=== PATIENT | female | born 1950 | race Caucasian/White ===

== ENCOUNTER 2018-02-03 15:43 | Inpatient (IN) | payer BC ==
[2018-02-03] MEDS ORDERED: KETOROLAC 30 MG INJ IV (18:30)
[2018-02-03] MEDS ORDERED: BISACODYL 10 MG SUPP PR (19:00)
[2018-02-03] MEDS ORDERED: NACL 0.9% 3 ML SYG IV ×2 (19:00)
[2018-02-03] MEDS ORDERED: ACETAMINOPHEN 325 MG TAB PO (19:00)
[2018-02-03] MEDS ORDERED: HYDROCODONE/APAP (5/325) TAB PO ×3 (19:00)
[2018-02-03] MEDS ORDERED: METHOCARBAMOL 500 MG TAB PO (19:00)
[2018-02-03] MEDS ORDERED: DOCUSATE SODIUM 100 MG CAP PO (19:00)
[2018-02-03] MEDS ORDERED: ACETAMINOPHEN 650 MG SUPP PR (19:00)
[2018-02-03] MEDS: morphine 2 MG INJ IV (19:20)
[2018-02-03] MEDS: NAPROXEN 500 MG TAB PO (21:35)
[2018-02-03] MEDS: FAMOTIDINE 20 MG INJ IV (21:35)
[2018-02-03] MEDS: BISACODYL (EC) 5 MG TAB PO (21:36)
[2018-02-03] MEDS: AMITRIPTYLINE 25 MG TAB PO (21:36)
[2018-02-04] MEDS: FAMOTIDINE 20 MG INJ IV ×2 (08:37→21:21)
[2018-02-04] MEDS: predniSONE 20 MG TAB PO (08:37)
[2018-02-04] MEDS: NAPROXEN 500 MG TAB PO ×2 (08:37→21:21)
[2018-02-04] MEDS: FUROSEMIDE 20 MG TAB PO (08:37)
[2018-02-04] MEDS: DICLOFENAC SODIUM 1% GEL 100 GM TUBE TP ×2 (12:40→21:22)
[2018-02-04] MEDS: BISACODYL (EC) 5 MG TAB PO (12:43)
[2018-02-04] MEDS: MAGNESIUM HYDROXIDE 30ML CUP PO (12:43)
[2018-02-04] MEDS: BISACODYL 30 ML ENEMA PR (15:21)
[2018-02-04] MEDS: CARISOPRODOL 350 MG TAB PO ×2 (15:23→21:21)
[2018-02-04] MEDS: LUBIPROSTONE 8 MCG CAPSULE PO ×2 (15:23→23:00)
[2018-02-04] MEDS: ONDANSETRON 4 MG INJ IV (16:33)
[2018-02-04] MEDS: AMITRIPTYLINE 25 MG TAB PO (21:21)
[2018-02-04] MEDS: DOCUSATE SODIUM 100 MG CAP PO (21:21)
[2018-02-05 09:22] LABS: ADD MAN DIFF? NO
[2018-02-05 09:26] LABS: WHITE BLOOD COUNT 11.3 10^3/ul (4.8-10.8)
[2018-02-05 09:26] LABS: BASOPHILS % 0.1 % (0.0-2.0); HEMATOCRIT 40.3 % (37.0-47.0); HEMOGLOBIN 13.2 g/dl (12.0-16.0); LYMPHOCYTES # 1.4 10^3/ul (0.8-2.9); LYMPHOCYTES % 12.8 % (15.0-51.0); MEAN CORPUSCULAR HEMOGLOBIN 29.7 pg (29.0-33.0); MEAN CORPUSCULAR HGB CONC 32.8 g/dl (32.0-37.0); MEAN CORPUSCULAR VOLUME 90.8 fl (82.0-101.0); MEAN PLATELET VOLUME 11.3 fl (7.4-10.4); MONOCYTE # 0.7 10^3/ul (0.3-0.9); MONOCYTES % 6.4 % (0.0-11.0); NEUTROPHILS % 79.8 % (39.0-77.0); PLATELET COUNT 225 10^3/UL (140-415); RED BLOOD COUNT 4.44 10^6/ul (4.20-5.40); RED CELL DISTRIBUTION WIDTH 13.4 % (11.5-14.5)
[2018-02-05] MEDS: predniSONE 20 MG TAB PO (09:48)
[2018-02-05] MEDS: FUROSEMIDE 20 MG TAB PO (09:48)
[2018-02-05] MEDS: FAMOTIDINE 20 MG INJ IV (09:48)
[2018-02-05] MEDS: CARISOPRODOL 350 MG TAB PO (09:48)
[2018-02-05] MEDS: BISACODYL (EC) 5 MG TAB PO (09:48)
[2018-02-05] MEDS: DOCUSATE SODIUM 100 MG CAP PO (09:48)
[2018-02-05] MEDS: NAPROXEN 500 MG TAB PO (09:48)
[2018-02-05] MEDS: LUBIPROSTONE 8 MCG CAPSULE PO (09:51)
[2018-02-05] MEDS: NA PHOSPHATE/BIPHOS 133 ML ENEMA PR (09:52)
[2018-02-05 10:02] LABS: ANION GAP 12 (8-16); BLOOD UREA NITROGEN 38 mg/dl (7-20); CALCIUM 8.6 mg/dl (8.4-10.2); CARBON DIOXIDE 33 mmol/L (21-31); CHLORIDE 102 mmol/L (97-110); CREATININE 0.78 mg/dl (0.44-1.00); GLUCOSE 111 mg/dl (70-220); POTASSIUM 3.9 mmol/L (3.5-5.1); SODIUM 143 mmol/L (135-144)
[2018-02-05] MEDS: ERGOCALCIFEROL 50,000 UNIT CAP PO (14:15)
[2018-02-05] MEDS: MAGNESIUM CITRATE 300 ML BTL PO (14:15)
[2018-02-06] MEDS ORDERED: FAMOTIDINE 20 MG TAB PO (09:00)
== END 2018-02-05 19:30 | disposition home or self-care (01) | DRG 552 ==
LOC: 5EC 15:43
PROVIDERS: Internal Medicine Nephrology
DX: M54.41 Lumbago with sciatica, right side (principal); R65.10 Systemic inflammatory response syndrome (SIRS) of non-infectious origin without acute organ dysfunction; I10 Essential (primary) hypertension; R73.03 Prediabetes; K59.00 Constipation, unspecified; E55.9 Vitamin D deficiency, unspecified; E66.9 Obesity, unspecified; Z68.38 Body mass index [BMI] 38.0-38.9, adult; Z87.891 Personal history of nicotine dependence
CPT/HCPCS: 80048; 82652; 83036; 85025; 97116; 97161; 97530

== ENCOUNTER 2018-04-01 16:48 | Emergency (ER) | payer BC ==
[2018-04-01 17:43] LABS: ADD MAN DIFF? NO
[2018-04-01 17:51] LABS: WHITE BLOOD COUNT 5.5 10^3/ul (4.8-10.8)
[2018-04-01 17:51] LABS: BASOPHILS % 0.5 % (0.0-2.0); EOSINOPHILS # 0.1 10^3/ul (0.0-0.5); EOSINOPHILS % 2.4 % (0.0-7.0); HEMATOCRIT 38.9 % (37.0-47.0); HEMOGLOBIN 12.6 g/dl (12.0-16.0); LYMPHOCYTES # 1.7 10^3/ul (0.8-2.9); LYMPHOCYTES % 31.1 % (15.0-51.0); MEAN CORPUSCULAR HEMOGLOBIN 29.7 pg (29.0-33.0); MEAN CORPUSCULAR HGB CONC 32.4 g/dl (32.0-37.0); MEAN CORPUSCULAR VOLUME 91.7 fl (82.0-101.0); MEAN PLATELET VOLUME 11.3 fl (7.4-10.4); MONOCYTE # 0.4 10^3/ul (0.3-0.9); MONOCYTES % 7.7 % (0.0-11.0); NEUTROPHIL # 3.2 10^3/ul (1.6-7.5); NEUTROPHILS % 58.1 % (39.0-77.0); PLATELET COUNT 240 10^3/UL (140-415); RED BLOOD COUNT 4.24 10^6/ul (4.20-5.40); RED CELL DISTRIBUTION WIDTH 14.2 % (11.5-14.5)
[2018-04-01] MEDS ORDERED: ACETAMINOPHEN 325 MG TAB PO (18:00)
[2018-04-01] MEDS ORDERED: ONDANSETRON 4 MG INJ IV (18:00)
[2018-04-01 18:07] LABS: INR 0.97
[2018-04-01 18:09] LABS: ANION GAP 7 (5-13); BLOOD UREA NITROGEN 24 mg/dl (7-20); CALCIUM 9.2 mg/dl (8.4-10.2); CARBON DIOXIDE 26 mmol/L (21-31); CHLORIDE 107 mmol/L (97-110); CREATININE 0.64 mg/dl (0.44-1.00); Estimated GFR > 60 mL/min (>60); GLUCOSE 100 mg/dl (70-220); POTASSIUM 3.7 mmol/L (3.5-5.1); SODIUM 140 mmol/L (135-144)
[2018-04-01 18:21] LABS: TROPONIN-I < 0.012 ng/ml (0.000-0.120)
== END 2018-04-01 20:35 | disposition home or self-care (01) ==
LOC: E/R 16:48
DX: M54.5 Low back pain (principal); I10 Essential (primary) hypertension; E66.9 Obesity, unspecified; R10.9 Unspecified abdominal pain
CPT/HCPCS: 36415; 71045; 80048; 84484; 85025; 85610; 85730; 86850; 86900; 86901; 99285-25

== ENCOUNTER 2018-04-04 13:18 | Inpatient (IN) | payer BC ==
[2018-04-04] MEDS ORDERED: ONDANSETRON 4 MG INJ IV ×2 (13:30→16:00)
[2018-04-04] MEDS ORDERED: ACETAMINOPHEN 325 MG TAB PO ×2 (13:30→16:00)
[2018-04-04 13:47] LABS: ADD MAN DIFF? NO
[2018-04-04 13:52] LABS: BASOPHILS % 0.4 % (0.0-2.0); EOSINOPHILS # 0.2 10^3/ul (0.0-0.5); EOSINOPHILS % 4.3 % (0.0-7.0); HEMATOCRIT 37.8 % (37.0-47.0); HEMOGLOBIN 12.4 g/dl (12.0-16.0); LYMPHOCYTES # 1.4 10^3/ul (0.8-2.9); LYMPHOCYTES % 26.9 % (15.0-51.0); MEAN CORPUSCULAR HEMOGLOBIN 30.5 pg (29.0-33.0); MEAN CORPUSCULAR HGB CONC 32.8 g/dl (32.0-37.0); MEAN CORPUSCULAR VOLUME 93.1 fl (82.0-101.0); MEAN PLATELET VOLUME 11.4 fl (7.4-10.4); MONOCYTE # 0.3 10^3/ul (0.3-0.9); MONOCYTES % 6.5 % (0.0-11.0); NEUTROPHIL # 3.1 10^3/ul (1.6-7.5); NEUTROPHILS % 61.7 % (39.0-77.0); PLATELET COUNT 238 10^3/UL (140-415); RED BLOOD COUNT 4.06 10^6/ul (4.20-5.40); RED CELL DISTRIBUTION WIDTH 14.5 % (11.5-14.5)
[2018-04-04 13:52] LABS: WHITE BLOOD COUNT 5.1 10^3/ul (4.8-10.8)
[2018-04-04 14:09] LABS: ANION GAP 6 (5-13); BLOOD UREA NITROGEN 19 mg/dl (7-20); CALCIUM 8.7 mg/dl (8.4-10.2); CARBON DIOXIDE 27 mmol/L (21-31); CHLORIDE 108 mmol/L (97-110); CREATININE 0.61 mg/dl (0.44-1.00); Estimated GFR > 60 mL/min (>60); GLUCOSE 125 mg/dl (70-220); POTASSIUM 3.9 mmol/L (3.5-5.1); SODIUM 141 mmol/L (135-144)
[2018-04-04 14:12] LABS: INR 0.97; PARTIAL THROMBOPLASTIN TIME 30.7 Sec (23.0-35.0)
[2018-04-04 14:21] LABS: TROPONIN-I < 0.012 ng/ml (0.000-0.120)
[2018-04-04] MEDS ORDERED: CARISOPRODOL 350 MG TAB PO (16:00)
[2018-04-04] MEDS ORDERED: HYDROCODONE/APAP (5/325) TAB PO (16:00)
[2018-04-04] MEDS ORDERED: METHOCARBAMOL 500 MG TAB PO (16:00)
[2018-04-04] MEDS ORDERED: NACL 0.9% 3 ML SYG IV (16:00)
[2018-04-04 16:08] LABS: CREATINE KINASE 23 IU/L (23-200)
[2018-04-04 16:21] LABS: CK-MB < 0.22 ng/ml (0.0-2.4); TROPONIN-I < 0.012 ng/ml (0.000-0.120)
[2018-04-04] MEDS: HYDROmorphONE 2 MG TAB PO (20:11)
[2018-04-04] MEDS: AMITRIPTYLINE 25 MG TAB PO (20:14)
[2018-04-04] MEDS: NAPROXEN 500 MG TAB PO (20:14)
[2018-04-04] MEDS: LUBIPROSTONE 8 MCG CAPSULE PO (20:14)
[2018-04-04] MEDS: GABAPENTIN 100 MG CAP PO (20:14)
[2018-04-04 22:44] LABS: CREATINE KINASE 25 IU/L (23-200)
[2018-04-04 22:57] LABS: CK INDEX 1.5; CK-MB 0.37 ng/ml (0.0-2.4); TROPONIN-I < 0.012 ng/ml (0.000-0.120)
[2018-04-04] MEDS: LORAZEPAM 2 MG INJ IV (23:54)
[2018-04-04] MEDS: ENOXAPARIN 100 MG/ML SYG SC (23:54)
[2018-04-04] MEDS: HYDROCODONE/APAP (5/325) TAB PO (23:59)
[2018-04-05] MEDS ORDERED: HYDROmorphONE 1 MG/ML SYG IV (00:30)
[2018-04-05] MEDS: PANTOPRAZOLE (EC) 40 MG TAB PO (05:48)
[2018-04-05] MEDS: LUBIPROSTONE 8 MCG CAPSULE PO ×2 (09:15→20:28)
[2018-04-05] MEDS: NAPROXEN 500 MG TAB PO ×2 (09:15→20:28)
[2018-04-05] MEDS: MAGNESIUM HYDROXIDE 30ML CUP PO (09:15)
[2018-04-05] MEDS: BISACODYL 10 MG SUPP PR (09:16)
[2018-04-05] MEDS: GABAPENTIN 100 MG CAP PO ×2 (09:16→20:28)
[2018-04-05] MEDS: ENOXAPARIN 100 MG/ML SYG SC ×2 (09:19→22:15)
[2018-04-05] MEDS: BISACODYL (EC) 5 MG TAB PO (17:28)
[2018-04-05] MEDS: AMITRIPTYLINE 25 MG TAB PO (20:28)
[2018-04-05] MEDS: HYDROCODONE/APAP (5/325) TAB PO (20:30)
[2018-04-06] MEDS: PANTOPRAZOLE (EC) 40 MG TAB PO (06:28)
[2018-04-06] MEDS: LUBIPROSTONE 8 MCG CAPSULE PO ×2 (10:00→22:11)
[2018-04-06] MEDS: GABAPENTIN 100 MG CAP PO ×2 (10:00→22:14)
[2018-04-06] MEDS: MAGNESIUM HYDROXIDE 30ML CUP PO (10:00)
[2018-04-06] MEDS: NAPROXEN 500 MG TAB PO ×2 (10:00→22:10)
[2018-04-06] MEDS: ENOXAPARIN 100 MG/ML SYG SC ×2 (10:03→22:13)
[2018-04-06] MEDS: LORAZEPAM 2 MG INJ IV ×2 (10:04→22:16)
[2018-04-06] MEDS: BISACODYL 10 MG SUPP PR (10:06)
[2018-04-06] MEDS: NA PHOSPHATE/BIPHOS 133 ML ENEMA PR (10:44)
[2018-04-06] MEDS ORDERED: LACTULOSE ENEMA 1,000 ML BTL PR (14:30)
[2018-04-06] MEDS: LACTULOSE 30ML CUP PO (14:56)
[2018-04-06] MEDS: HYDROCODONE/APAP (5/325) TAB PO ×2 (15:58→22:10)
[2018-04-06] MEDS: AMITRIPTYLINE 25 MG TAB PO (22:10)
[2018-04-06] MEDS: DOCUSATE SODIUM 100 MG CAP PO (22:13)
[2018-04-07] MEDS: PANTOPRAZOLE (EC) 40 MG TAB PO (06:09)
[2018-04-07] MEDS: MAGNESIUM HYDROXIDE 30ML CUP PO (09:49)
[2018-04-07] MEDS: LUBIPROSTONE 8 MCG CAPSULE PO ×2 (09:49→20:10)
[2018-04-07] MEDS: NAPROXEN 500 MG TAB PO ×2 (09:49→20:10)
[2018-04-07] MEDS: BISACODYL 10 MG SUPP PR (09:49)
[2018-04-07] MEDS: GABAPENTIN 100 MG CAP PO ×2 (09:49→20:11)
[2018-04-07] MEDS: ENOXAPARIN 100 MG/ML SYG SC (09:51)
[2018-04-07] MEDS: LORAZEPAM 2 MG INJ IV ×2 (10:01→21:28)
[2018-04-07 12:00] LABS: ANION GAP 5 (5-13); BLOOD UREA NITROGEN 15 mg/dl (7-20); CALCIUM 8.8 mg/dl (8.4-10.2); CARBON DIOXIDE 29 mmol/L (21-31); CHLORIDE 105 mmol/L (97-110); CREATININE 0.63 mg/dl (0.44-1.00); Estimated GFR > 60 mL/min (>60); GLUCOSE 95 mg/dl (70-220); SODIUM 139 mmol/L (135-144)
[2018-04-07] MEDS: AMITRIPTYLINE 25 MG TAB PO (20:11)
[2018-04-07] MEDS: HYDROCODONE/APAP (5/325) TAB PO (20:12)
[2018-04-07] MEDS: APIXABAN 5 MG TABLET PO (21:02)
[2018-04-08] MEDS: PANTOPRAZOLE (EC) 40 MG TAB PO (06:18)
[2018-04-08] MEDS: LORAZEPAM 2 MG INJ IV (09:55)
[2018-04-08] MEDS: BISACODYL 10 MG SUPP PR (09:56)
[2018-04-08] MEDS: LUBIPROSTONE 8 MCG CAPSULE PO (09:56)
[2018-04-08] MEDS: MAGNESIUM HYDROXIDE 30ML CUP PO (09:56)
[2018-04-08] MEDS: APIXABAN 5 MG TABLET PO (09:57)
[2018-04-08] MEDS: NAPROXEN 500 MG TAB PO (09:57)
[2018-04-08] MEDS: GABAPENTIN 100 MG CAP PO (09:57)
[2018-04-08] MEDS: HYDROCODONE/APAP (5/325) TAB PO (12:54)
[2018-04-09] MEDS ORDERED: ERGOCALCIFEROL 50,000 UNIT CAP PO (09:00)
== END 2018-04-08 16:30 | DRG 552 ==
LOC: E/R 13:18 → PP2 13:24
DX: M54.16 Radiculopathy, lumbar region (principal); M50.00 Cervical disc disorder with myelopathy, unspecified cervical region; I82.4Z2 Acute embolism and thrombosis of unspecified deep veins of left distal lower extremity; I10 Essential (primary) hypertension; R73.03 Prediabetes; Z68.35 Body mass index [BMI] 35.0-35.9, adult; E55.9 Vitamin D deficiency, unspecified; K59.00 Constipation, unspecified; F32.9 Major depressive disorder, single episode, unspecified; F41.9 Anxiety disorder, unspecified; G47.33 Obstructive sleep apnea (adult) (pediatric); M48.07 Spinal stenosis, lumbosacral region; M48.062 Spinal stenosis, lumbar region with neurogenic claudication; M19.90 Unspecified osteoarthritis, unspecified site; K21.9 Gastro-esophageal reflux disease without esophagitis; E78.5 Hyperlipidemia, unspecified; E66.01 Morbid (severe) obesity due to excess calories
CPT/HCPCS: 36415; 71045; 80048; 82550; 82553; 84484; 85025; 85610; 85730; 87081; 90686; 93005; 93306; 93970; 99285-25; G0378

== ENCOUNTER 2018-08-05 06:34 | Inpatient (IN) | payer BC ==
[~2018-08-05 06:34] MED LIST: SOD CHLORIDE 0.9% 1,000 ML IV
[2018-08-05] MEDS ORDERED: EPHEDrine SULFATE 50 MG/5 ML SYG (07:00)
[2018-08-05] MEDS: THROMBIN (BOVINE) 5,000 UNIT VIAL TP (08:03)
[2018-08-05] MEDS: GELATIN SIZE 100 SPONGE (08:03)
[2018-08-05] MEDS: LIDOCAINE 1%/EPI (1:100,000) (MDV) 20 ML (08:03)
[2018-08-05] MEDS: VANCOMYCIN 1 GM INJ (08:03)
[2018-08-05] MEDS: POLYMYXIN/BACITRACIN 1L IRRIG (08:03)
[2018-08-05] MEDS: BUPIVACAINE 0.5% (SDV) 30 ML INJ (08:03)
[2018-08-05] MEDS: CEFAZOLIN 2 GM/50 ML (PMX) 50 ML (FOR WT < 120 KG) IVPB (08:10)
[2018-08-05] MEDS ORDERED: PROPOFOL 20 ML (08:15)
[2018-08-05] MEDS ORDERED: ROCURONIUM 50 MG INJ (08:15)
[2018-08-05] MEDS ORDERED: MIDAZOLAM 1 MG/ML 2 ML INJ (08:15)
[2018-08-05] MEDS ORDERED: CEFAZOLIN 1 GM INJ ×2 (08:25→11:21)
[2018-08-05] MEDS ORDERED: DEXAMETHASONE 4 MG/ML 5 ML INJ (08:28)
[2018-08-05] MEDS ORDERED: METOCLOPRAMIDE 10 MG INJ (08:28)
[2018-08-05] MEDS ORDERED: ONDANSETRON 4 MG INJ (08:28)
[2018-08-05] MEDS ORDERED: PHENYLephrine (100 MCG/ML) 5ML SYG ×2 (08:30→10:07)
[2018-08-05] MEDS ORDERED: THROMBIN (BOVINE) 5,000 UNIT VIAL TP ×2 (10:32→11:13)
[2018-08-05] MEDS ORDERED: GELATIN SIZE 100 SPONGE (11:13)
[2018-08-05] MEDS ORDERED: GLYCOPYRROLATE 0.4 MG INJ (12:48)
[2018-08-05] MEDS ORDERED: NEOSTIGMINE 10 MG INJ (12:48)
[2018-08-05] MEDS ORDERED: SOD CHLORIDE 0.45% 1,000 ML IV (13:06)
[2018-08-05] MEDS ORDERED: ONDANSETRON 4 MG INJ IV (13:30)
[2018-08-05] MEDS ORDERED: NACL 0.9% 3 ML SYG IV (13:30)
[2018-08-05] MEDS ORDERED: DIAZEPAM 5 MG TAB PO (13:30)
[2018-08-05] MEDS ORDERED: NALOXONE (0.4 MG/ML) INJ IV (13:30)
[2018-08-05] MEDS ORDERED: OXYCODONE/ACETAMINOPHEN (5/325) TAB PO ×4 (13:30→16:30)
[2018-08-05] MEDS ORDERED: METOCLOPRAMIDE 10 MG INJ IV (13:30)
[2018-08-05] MEDS ORDERED: MEPERIDINE 25 MG INJ IV (13:30)
[2018-08-05] MEDS ORDERED: HYDROmorphONE 1 MG/5 ML IV SYRINGE IV ×3 (13:30)
[2018-08-05] MEDS ORDERED: AL HYDROX/MG HYDROX/SIMETH 30 ML CUP PO (13:30)
[2018-08-05] MEDS ORDERED: LABETALOL HCL 20MG INJ IV (13:30)
[2018-08-05] MEDS ORDERED: FENTAnyl 50 MCG/ML VIAL IV ×3 (13:30)
[2018-08-05] MEDS ORDERED: hydrALAzine 20 MG INJ IV (13:30)
[2018-08-05] MEDS ORDERED: DIPHENHYDRAMINE 50 MG INJ IV (13:30)
[2018-08-05] MEDS ORDERED: EPHEDrine SULFATE 50 MG/5 ML SYG IV (13:30)
[2018-08-05] MEDS ORDERED: ZOLPIDEM 5 MG TAB PO (13:30)
[2018-08-05] MEDS: morphine 1 MG/ML 30 ML (PCA) IV (13:37)
[2018-08-05] MEDS: ACETAMINOPHEN 1000MG/100ML IV 100 ML IVPB ×2 (14:22→22:24)
[2018-08-05] MEDS: SOD CHLORIDE 0.45% 1,000 ML IV (16:57)
[2018-08-05] MEDS: CEFEPIME 2GM/50 ML (PMX) 50 ML IVPB (21:15)
[2018-08-06] MEDS: ACETAMINOPHEN 1000MG/100ML IV 100 ML IVPB ×2 (01:30→04:36)
[2018-08-06] MEDS: SOD CHLORIDE 0.45% 1,000 ML IV (02:24)
[2018-08-06 05:05] LABS: ADD MAN DIFF? NO
[2018-08-06 05:17] LABS: WHITE BLOOD COUNT 11.2 10^3/ul (4.8-10.8)
[2018-08-06 05:17] LABS: BASOPHILS % 0.1 % (0.0-2.0); HEMATOCRIT 28.1 % (37.0-47.0); HEMOGLOBIN 9.2 g/dl (12.0-16.0); LYMPHOCYTES # 0.8 10^3/ul (0.8-2.9); LYMPHOCYTES % 7.1 % (15.0-51.0); MEAN CORPUSCULAR HGB CONC 32.7 g/dl (32.0-37.0); MEAN CORPUSCULAR VOLUME 88.6 fl (82.0-101.0); MEAN PLATELET VOLUME 11.6 fl (7.4-10.4); MONOCYTE # 0.3 10^3/ul (0.3-0.9); MONOCYTES % 2.2 % (0.0-11.0); NEUTROPHIL # 10.1 10^3/ul (1.6-7.5); NEUTROPHILS % 90.2 % (39.0-77.0); PLATELET COUNT 189 10^3/UL (140-415); RED BLOOD COUNT 3.17 10^6/ul (4.20-5.40); RED CELL DISTRIBUTION WIDTH 13.3 % (11.5-14.5)
[2018-08-06 05:36] LABS: TROPONIN-I < 0.012 ng/ml (0.000-0.120)
[2018-08-06 05:37] LABS: ANION GAP 6 (5-13); BLOOD UREA NITROGEN 14 mg/dl (7-20); CALCIUM 8.5 mg/dl (8.4-10.2); CARBON DIOXIDE 27 mmol/L (21-31); CHLORIDE 107 mmol/L (97-110); CREATININE 0.56 mg/dl (0.44-1.00); Estimated GFR > 60 mL/min (>60); GLUCOSE 134 mg/dl (70-220); POTASSIUM 4.1 mmol/L (3.5-5.1); SODIUM 140 mmol/L (135-144)
[2018-08-06] MEDS: LACTATED RINGER'S 1,000 ML IV (06:00)
[2018-08-06] MEDS: PANTOPRAZOLE (EC) 40 MG TAB PO (06:00)
[2018-08-06] MEDS: CEFEPIME 2GM/50 ML (PMX) 50 ML IVPB ×2 (08:45→20:58)
[2018-08-06] MEDS: DOCUSATE SODIUM 100 MG CAP PO ×2 (08:46→20:58)
[2018-08-06] MEDS: HEPARIN 5,000 UNIT/1 ML VIAL SC ×2 (11:30→21:13)
[2018-08-06 14:30] LABS: TROPONIN-I < 0.012 ng/ml (0.000-0.120)
[2018-08-06] MEDS: HYDROCODONE/APAP (5/325) TAB PO (19:42)
[2018-08-06] MEDS: AMITRIPTYLINE 25 MG TAB PO (22:25)
[2018-08-07] MEDS: morphine 2 MG INJ IV (05:07)
[2018-08-07 05:31] LABS: ADD MAN DIFF? NO
[2018-08-07 05:44] LABS: WHITE BLOOD COUNT 8.8 10^3/ul (4.8-10.8)
[2018-08-07 05:44] LABS: ABNORMAL IP MESSAGE 1; BASOPHILS % 0.1 % (0.0-2.0); EOSINOPHILS % 0.1 % (0.0-7.0); HEMATOCRIT 26.9 % (37.0-47.0); HEMOGLOBIN 8.7 g/dl (12.0-16.0); LYMPHOCYTES # 1.3 10^3/ul (0.8-2.9); LYMPHOCYTES % 15.1 % (15.0-51.0); MEAN CORPUSCULAR HEMOGLOBIN 30.1 pg (29.0-33.0); MEAN CORPUSCULAR HGB CONC 32.3 g/dl (32.0-37.0); MEAN CORPUSCULAR VOLUME 93.1 fl (82.0-101.0); MEAN PLATELET VOLUME 12.4 fl (7.4-10.4); MONOCYTE # 0.5 10^3/ul (0.3-0.9); MONOCYTES % 5.4 % (0.0-11.0); NEUTROPHIL # 6.9 10^3/ul (1.6-7.5); NEUTROPHILS % 78.7 % (39.0-77.0); RED BLOOD COUNT 2.89 10^6/ul (4.20-5.40); RED CELL DISTRIBUTION WIDTH 13.8 % (11.5-14.5)
[2018-08-07 06:01] LABS: POSITIVE DIFF @See below
[2018-08-07 06:11] LABS: ANION GAP 5 (5-13); BLOOD UREA NITROGEN 18 mg/dl (7-20); CALCIUM 8.3 mg/dl (8.4-10.2); CARBON DIOXIDE 28 mmol/L (21-31); CHLORIDE 108 mmol/L (97-110); CREATININE 0.56 mg/dl (0.44-1.00); Estimated GFR > 60 mL/min (>60); GLUCOSE 97 mg/dl (70-220); POTASSIUM 3.6 mmol/L (3.5-5.1); SODIUM 141 mmol/L (135-144)
[2018-08-07] MEDS: PANTOPRAZOLE (EC) 40 MG TAB PO (06:21)
[2018-08-07] MEDS: HYDROCODONE/APAP (5/325) TAB PO ×2 (07:21→12:06)
[2018-08-07] MEDS: EPHEDrine 50 MG INJ IV (07:21)
[2018-08-07 08:19] LABS: PLATELET COUNT 173 10^3/UL (140-415)
[2018-08-07] MEDS: DOCUSATE SODIUM 100 MG CAP PO ×2 (08:33→20:21)
[2018-08-07] MEDS: CEFEPIME 2GM/50 ML (PMX) 50 ML IVPB ×2 (08:33→20:22)
[2018-08-07] MEDS: HEPARIN 5,000 UNIT/1 ML VIAL SC ×2 (08:39→20:24)
[2018-08-07] MEDS ORDERED: HYDROCODONE/APAP (5/325) TAB PO (12:00)
[2018-08-07] MEDS ORDERED: BISACODYL 10 MG SUPP PR (12:30)
[2018-08-07] MEDS: BISACODYL 30 ML ENEMA PR (14:50)
[2018-08-07] MEDS: LUBIPROSTONE 8 MCG CAPSULE PO ×2 (14:50→20:22)
[2018-08-07] MEDS: ACETAMINOPHEN 1000MG/100ML IV 100 ML IVPB ×2 (15:59→20:47)
[2018-08-07] MEDS: AMITRIPTYLINE 25 MG TAB PO (20:21)
[2018-08-08 05:15] LABS: ADD MAN DIFF? NO
[2018-08-08 05:19] LABS: BASOPHILS % 0.4 % (0.0-2.0); EOSINOPHILS % 0.4 % (0.0-7.0); HEMATOCRIT 29.2 % (37.0-47.0); HEMOGLOBIN 9.2 g/dl (12.0-16.0); LYMPHOCYTES # 1.4 10^3/ul (0.8-2.9); LYMPHOCYTES % 19.8 % (15.0-51.0); MEAN CORPUSCULAR HEMOGLOBIN 28.9 pg (29.0-33.0); MEAN CORPUSCULAR HGB CONC 31.5 g/dl (32.0-37.0); MEAN CORPUSCULAR VOLUME 91.8 fl (82.0-101.0); MEAN PLATELET VOLUME 11.6 fl (7.4-10.4); MONOCYTE # 0.6 10^3/ul (0.3-0.9); MONOCYTES % 8.4 % (0.0-11.0); NEUTROPHILS % 70.6 % (39.0-77.0); PLATELET COUNT 186 10^3/UL (140-415); RED BLOOD COUNT 3.18 10^6/ul (4.20-5.40); RED CELL DISTRIBUTION WIDTH 13.6 % (11.5-14.5)
[2018-08-08 05:19] LABS: WHITE BLOOD COUNT 7.1 10^3/ul (4.8-10.8)
[2018-08-08] MEDS: ACETAMINOPHEN 1000MG/100ML IV 100 ML IVPB (05:31)
[2018-08-08] MEDS: PANTOPRAZOLE (EC) 40 MG TAB PO (05:34)
[2018-08-08 05:38] LABS: ANION GAP 6 (5-13); BLOOD UREA NITROGEN 10 mg/dl (7-20); CALCIUM 8.4 mg/dl (8.4-10.2); CARBON DIOXIDE 32 mmol/L (21-31); CHLORIDE 103 mmol/L (97-110); CREATININE 0.59 mg/dl (0.44-1.00); Estimated GFR > 60 mL/min (>60); GLUCOSE 95 mg/dl (70-220); POTASSIUM 3.2 mmol/L (3.5-5.1); SODIUM 141 mmol/L (135-144)
[2018-08-08] MEDS: LUBIPROSTONE 8 MCG CAPSULE PO ×2 (09:14→21:00)
[2018-08-08] MEDS: CEFEPIME 2GM/50 ML (PMX) 50 ML IVPB (09:14)
[2018-08-08] MEDS: DOCUSATE SODIUM 100 MG CAP PO ×2 (09:14→21:00)
[2018-08-08] MEDS: HEPARIN 5,000 UNIT/1 ML VIAL SC ×2 (09:15→20:51)
[2018-08-08] MEDS: ONDANSETRON 4 MG INJ IV (09:26)
[2018-08-08] MEDS: POTASSIUM CHLORIDE (SR) 20 MEQ TAB PO ×2 (13:47→13:50)
[2018-08-08] MEDS: AMLODIPINE 5 MG TAB PO (13:48)
[2018-08-08] MEDS: HYDROCODONE/APAP (5/325) TAB PO (17:34)
[2018-08-08] MEDS: AMITRIPTYLINE 25 MG TAB PO (20:49)
[2018-08-08] MEDS: ACETAMINOPHEN 325 MG TAB PO (23:39)
[2018-08-09] MEDS: PANTOPRAZOLE (EC) 40 MG TAB PO (05:25)
[2018-08-09] MEDS: AMLODIPINE 5 MG TAB PO (09:00)
[2018-08-09] MEDS: LUBIPROSTONE 8 MCG CAPSULE PO (09:46)
[2018-08-09] MEDS: DOCUSATE SODIUM 100 MG CAP PO (09:46)
[2018-08-09] MEDS: HEPARIN 5,000 UNIT/1 ML VIAL SC (09:49)
[2018-08-09] MEDS: BISACODYL 10 MG SUPP PR (09:52)
[2018-08-09] MEDS: HYDROCODONE/APAP (5/325) TAB PO (09:55)
== END 2018-08-09 14:25 | disposition home health service (06) | DRG 516 ==
LOC: REC 06:34 → MS1 15:39
PROC: 01NB0ZZ Release Lumbar Nerve, Open Approach (ICD-10-PCS; principal; 2018-08-05 08:00)
DX: M47.26 Other spondylosis with radiculopathy, lumbar region (principal); M47.12 Other spondylosis with myelopathy, cervical region; M47.27 Other spondylosis with radiculopathy, lumbosacral region; M48.07 Spinal stenosis, lumbosacral region; I10 Essential (primary) hypertension; F41.9 Anxiety disorder, unspecified; M48.062 Spinal stenosis, lumbar region with neurogenic claudication; M48.02 Spinal stenosis, cervical region; R73.03 Prediabetes; F32.9 Major depressive disorder, single episode, unspecified; E66.9 Obesity, unspecified; Z86.718 Personal history of other venous thrombosis and embolism; Z68.37 Body mass index [BMI] 37.0-37.9, adult
CPT/HCPCS: 72100; 80048; 84484; 85025; 86850; 86900; 86901; 87086; 93970; 97116; 97162; 97530